=== PATIENT | male | born 1995 | race African-American/Black ===

== ENCOUNTER 2019-06-28 10:04 | Emergency (ER) | payer OTHER ==
[~2019-06-28] VITALS: Ht 172.7 cm; Wt 83.9 kg
[2019-06-28] MEDS ORDERED: methylPREDNISolone SOD SUCC 125 MG/2 ML VL IV ONE (10:30)
[2019-06-28 11:05] LABS: Basophils # (auto) 0.1 uL; Basophils % (auto) 0.6 % (0.0-2.0); Eosinophils # (auto) 0.1 uL; Eosinophils % (auto) 0.8 % (0.0-7.0); Hematocrit 41.8 % (41.0-53.0); Lymphocytes # (auto) 2.4 uL; Lymphocytes % (auto) 17.9 % (10.0-50.0); Mean Corpuscular Hemoglobin 31.4 pg (28.0-32.0); Mean Corpuscular Hgb Conc. 33.5 g/dL (32.0-36.0); Mean Corpuscular Volume 93.7 fL (80.0-100.0); Monocytes # (auto) 0.9 uL; Monocytes % (auto) 6.6 % (0.0-12.0); Neutrophils # (auto) 9.8 uL; Neutrophils % (auto) 74.1 % (37.0-80.0); Platelet Count (auto) 213 10^3/uL (140-450); Red Blood Cells 4.46 10^6/uL (4.5-5.90); White Blood Cell 13.2 10^3/uL (4.4-10.8)
[2019-06-28 11:22] LABS: Albumin 3.5 g/dL (3.4-5.0); Anion Gap 7 (5-15); Blood Urea Nitrogen 6 mg/dL (7-18); Calcium 8.4 mg/dL (8.5-10.1); Carbon Dioxide 27 mmol/L (21-32); Chloride 106 mmol/L (98-107); Glucose 105 mg/dL (74-106); Magnesium 1.9 mg/dL (1.6-2.6); Potassium 3.6 mmol/L (3.5-5.1); Sodium 140 mmol/L (136-145)
[2019-06-28 11:28] LABS: Alanine Aminotransferase 31 U/L (16-61); Alkaline Phosphatase 63 U/L (45-117); Aspartate Aminotransferase 43 U/L (15-37); BUN/Creatinine Ratio 8.6; Bilirubin, Total 0.6 mg/dL (0.2-1.0); GFR African American 180 mL/min; GFR Non-African American 149 mL/min; Total Protein 7.8 g/dL (6.4-8.2)
[2019-06-28 12:36] VITALS: BP 122/76
== END 2019-06-28 12:54 | disposition home or self-care (01) ==
LOC: EDBD 10:04 → ER 10:04
DX: J20.9 Acute bronchitis, unspecified (principal); I10 Essential (primary) hypertension; F17.210 Nicotine dependence, cigarettes, uncomplicated
CPT/HCPCS: 36415; 71045; 80053; 83735; 83880; 84484; 85025; 93005; 96374; 99284; J2930; J7030

== ENCOUNTER 2019-07-04 23:42 | Emergency (ER) | payer OTHER ==
[~2019-07-04] VITALS: Ht 170.2 cm; Wt 108.9 kg
[2019-07-05 00:04] VITALS: BP 117/78
== END 2019-07-05 01:16 | disposition home or self-care (01) ==
LOC: ER 23:43
DX: J40 Bronchitis, not specified as acute or chronic (principal); I10 Essential (primary) hypertension; F17.210 Nicotine dependence, cigarettes, uncomplicated
CPT/HCPCS: 71045

== ENCOUNTER 2019-10-18 09:40 | Emergency (ER) | payer MEDICAID, OTHER ==
[~2019-10-18] VITALS: Ht 172.7 cm; Wt 99.8 kg
[2019-10-18 10:11] VITALS: BP 138/99
[2019-10-18] MEDS ORDERED: PENICILLIN G BENZ 1200000 UNITS/2 ML SYRG IM ONE (10:45)
[2019-10-18] MEDS ORDERED: KETOROLAC TROMETH 60MG/2ML VIAL IM ONE (10:45)
[2019-10-18 10:58] LABS: Urine WBC None Seen /hpf (0 - 3)
[2019-10-18 11:05] LABS: Urine Bacteria FEW /hpf (None Seen); Urine Blood Negative /uL (Negative); Urine Mucus FEW (None Seen); Urine Specific Gravity 1.026 (1.001-1.035)
[2019-10-18 11:21] LABS: Amphetamine Screen, Urine NEGATIVE (NEGATIVE); Barbiturate Scree,Urine NEGATIVE (NEGATIVE); Benzodiazephine Screen, Urine NEGATIVE (NEGATIVE); Cannabinoid Screen, Urine POSITIVE (NEGATIVE); Cocaine Screen, Urine POSITIVE (NEGATIVE); Opiate Scree,Urine NEGATIVE (NEGATIVE); Phencyclidine Screen, Urine NEGATIVE (NEGATIVE)
== END 2019-10-18 11:28 | disposition home or self-care (01) ==
LOC: ER 09:40
DX: K52.9 Noninfective gastroenteritis and colitis, unspecified (principal); F19.10 Other psychoactive substance abuse, uncomplicated; F17.210 Nicotine dependence, cigarettes, uncomplicated; Z20.2 Contact with and (suspected) exposure to infections with a predominantly sexual mode of transmission
CPT/HCPCS: 74176; 80307; 81001; 96372; 99284; J0561; J1885

== ENCOUNTER 2019-10-25 12:35 | Emergency (ER) | payer MEDICAID | END 2019-10-25 13:34 | disposition left against medical advice (07) | LOC: ER 12:35 | DX: Z00.00 Encounter for general adult medical examination without abnormal findings (principal); Z53.21 Procedure and treatment not carried out due to patient leaving prior to being seen by health care provider ==

== ENCOUNTER → 2020-02-04 | Emergency (ER) | payer MEDICAID ==
[~2020-02-04] VITALS: Ht 172.7 cm; Wt 104.3 kg
[2020-02-04 15:52] LABS: Basophils # (auto) 0.1 10 ^3/uL (0-0.2); Basophils % (auto) 1.2 % (0.0-2.0); Eosinophils # (auto) 0.2 10 ^3/uL (0-0.8); Hematocrit 45.2 % (41.0-53.0); Hemoglobin 15.1 g/dL (13.5-17.5); Lymphocytes # (auto) 2.3 10 ^3/uL (0.4-5.4); Lymphocytes % (auto) 21.6 % (10.0-50.0); Mean Corpuscular Hemoglobin 32.2 pg (28.0-32.0); Mean Corpuscular Hgb Conc. 33.5 g/dL (32.0-36.0); Mean Corpuscular Volume 96.4 fL (80.0-100.0); Monocytes # (auto) 0.8 10 ^3/uL (0-1.3); Monocytes % (auto) 7.3 % (0.0-12.0); Neutrophils # (auto) 7.2 10 ^3/uL (1.6-8.6); Neutrophils % (auto) 67.9 % (37.0-80.0); Nucleated Red Blood Cells % 0.1 %; Platelet Count (auto) 255 10^3/uL (140-450); Red Blood Cells 4.69 10^6/uL (4.5-5.90); Red Cell Distribution Width 13.1 % (11.8-14.3); White Blood Cell 10.6 10^3/uL (4.4-10.8)
[2020-02-04 16:09] LABS: Albumin 3.5 g/dL (3.4-5.0); BUN/Creatinine Ratio 10.8; Calcium 8.5 mg/dL (8.5-10.1)
[2020-02-04 16:12] LABS: Bilirubin, Total 0.2 mg/dL (0.2-1.0); Total Protein 7.7 g/dL (6.4-8.2)
[2020-02-04 19:10] VITALS: BP 139/90
== END | disposition home or self-care (01) ==
LOC: ER 14:53
DX: K44.9 Diaphragmatic hernia without obstruction or gangrene (principal); I10 Essential (primary) hypertension; F17.210 Nicotine dependence, cigarettes, uncomplicated
CPT/HCPCS: 36415; 74176; 80053; 83690; 85025

== ENCOUNTER 2020-06-03 00:52 | Emergency (ER) | payer MEDICAID | END 2020-06-03 02:44 | disposition left against medical advice (07) | LOC: ER 00:58 | DX: M79.641 Pain in right hand (principal); Z53.21 Procedure and treatment not carried out due to patient leaving prior to being seen by health care provider ==

== ENCOUNTER 2021-06-15 01:14 | Emergency (ER) | payer MEDICAID ==
[~2021-06-15] VITALS: Ht 175.3 cm; Wt 111.3 kg
[2021-06-15 01:18] VITALS: BP 151/88
== END 2021-06-15 07:14 | disposition left against medical advice (07) ==
LOC: ER 01:14
DX: H57.89 Other specified disorders of eye and adnexa (principal); R06.02 Shortness of breath; R21 Rash and other nonspecific skin eruption; Z53.21 Procedure and treatment not carried out due to patient leaving prior to being seen by health care provider

== ENCOUNTER 2022-07-09 05:55 | Emergency (ER) | payer MEDICAID, OTHER | END 2022-07-09 07:30 | disposition left against medical advice (07) | LOC: ER 05:55 | DX: R10.9 Unspecified abdominal pain (principal); Z53.21 Procedure and treatment not carried out due to patient leaving prior to being seen by health care provider ==

== ENCOUNTER 2023-02-15 19:40 | Emergency (ER) | payer OTHER ==
[~2023-02-15] VITALS: Ht 172.7 cm; Wt 105.2 kg
[2023-02-15] MEDS ORDERED: SODIUM CHLORIDE 0.9% 1,000 ML IVB ONE (20:00)
[2023-02-15] MEDS ORDERED: KETOROLAC TROMETH 30 MG/ML 1ML VIAL IV ONE (20:00)
[2023-02-15] MEDS ORDERED: ONDANSETRON HCL 4 MG/2 ML VIAL IV ONE (20:00)
[2023-02-15 20:11] LABS: Basophils # (auto) 0.1 10 ^3/uL (0-0.2); Basophils % (auto) 0.9 % (0.0-2.0); Eosinophils # (auto) 0.4 10 ^3/uL (0-0.8); Eosinophils % (auto) 3.7 % (0.0-7.0); Hemoglobin 15.8 g/dL (13.5-17.5); Lymphocytes # (auto) 2.9 10 ^3/uL (0.4-5.4); Mean Corpuscular Hgb Conc. 33.5 g/dL (32.0-36.0); Mean Corpuscular Volume 98.6 fL (80.0-100.0); Monocytes # (auto) 0.8 10 ^3/uL (0-1.3); Monocytes % (auto) 7.6 % (0.0-12.0); Neutrophils # (auto) 6.5 10 ^3/uL (1.6-8.6); Neutrophils % (auto) 60.8 % (37.0-80.0); Nucleated Red Blood Cells % 0.1 %; Red Blood Cells 4.77 10^6/uL (4.5-5.90); Red Cell Distribution Width 13.2 % (11.8-14.3); White Blood Cell 10.7 10^3/uL (4.4-10.8)
[2023-02-15 20:35] LABS: Albumin 3.5 g/dL (3.4-5.0); Calcium 8.8 mg/dL (8.5-10.1); Potassium 4.1 mmol/L (3.5-5.1)
[2023-02-15 20:38] LABS: BUN/Creatinine Ratio 14.4 (10.0-20.0); Bilirubin, Total 0.6 mg/dL (0.2-1.0); Total Protein 7.5 g/dL (6.4-8.2)
[2023-02-15] MEDS ORDERED: TRAM50TA2 PO (20:47)
[2023-02-15 21:30] VITALS: BP 131/99
== END 2023-02-15 21:56 | disposition home or self-care (01) ==
LOC: ER 19:40
DX: R10.30 Lower abdominal pain, unspecified (principal); F17.210 Nicotine dependence, cigarettes, uncomplicated; F12.90 Cannabis use, unspecified, uncomplicated
CPT/HCPCS: 36415; 74176; 80053; 83690; 85025; 96374; 99285; J1885